=== PATIENT | female | born 1980 | race Caucasian/White ===

== ENCOUNTER 2018-06-03 15:47 | Emergency (ER) | payer SELFPAY ==
[2018-06-03] MEDS ORDERED: HYDROCODONE/APAP 10/325 TAB ONE (16:11)
[2018-06-03] MEDS ORDERED: IBUPROFEN 400 MG TAB ONE (16:11)
[2018-06-03] MEDS ORDERED: IBUPROFEN 200 MG TAB PO ONE (16:11)
--- NOTE | 2018-06-03 17:08 | RAD REPORT ---
EXAM DESCRIPTION: RAD - Foot Right 3 View - 06/03/2018 4:43 pm CLINICAL HISTORY: Foot and ankle pain, twisting injury COMPARISON: None. FINDINGS: No fracture, dislocation or periosteal reaction. No air or foreign body in the soft tissues. IMPRESSION: Negative right foot examination.
--- NOTE | 2018-06-03 17:14 | RAD REPORT ---
EXAM DESCRIPTION: RAD - Ankle Right 3 View - 06/03/2018 4:42 pm CLINICAL HISTORY: Ankle pain, twisting injury COMPARISON: None. FINDINGS: No fracture, dislocation or periosteal reaction. No joint effusion seen. No joint space na rrowing. Lateral soft tissue swelling is present. IMPRESSION: Soft tissue swelling with no right ankle fracture.
--- NOTE | 2018-06-03 17:23 | ER ---
Nurse's Notes [facility] Name: Karma Kay Age: 37 yrs Sex: Female : 1980 Arrival Date: 06/03/2018 Time: 15:50 Bed 11 Private MD: None, None Diagnosis: Pain in right ankle and joints of right foot;Sprain of unspecified ligament of right ankle;Unspecified sprain of right foot Presentation: 06/03 15:54 Presenting complaint: Patient states: Rolled right ankle 2 hours POST HOLE DIGGER. Transition of care: patient was not received from another setting of care. Onset of symptoms was June 03, 2018. Risk Assessment: Do you want to hurt yourself or someone else? Patient reports no desire to harm self or others. Initial Sepsis Screen: Does the patient meet any 2 criteria? No. Patient's initial sepsis screen is negative. Does the patient have a suspected source of infection? No. Patient's initial sepsis screen is negative. Care prior to arrival: None. 15:54 Method Of Arrival: Wheelchair 15:54 Acuity: CARO 4 aj Triage Assessment: 15:55 General: Appears in no apparent distress. uncomfortable, Behavior is calm, cooperative, aj appropriate for age. Pain: Complains of pain in right ankle and anterior aspect of right ankle. Neuro: Level of Consciousness is awake, alert, obeys commands, Oriented to person, place, time, situation, Appropriate for age. Respiratory: Airway is patent Respiratory effort is even, unlabored, Respiratory pattern is regular, symmetrical. Derm: Skin is intact, is healthy with good turgor, Skin is pink, warm \T\ dry. normal. Musculoskeletal: Swelling present in right ankle and anterior aspect of right ankle Reports pain in right ankle and anterior aspect of right ankle. 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 - Social history:: Smoking status: Patient uses tobacco products, smokes one-half pack cigarettes per day. - Ebola Screening: : Patient negative for fever greater than or equal to 101.5 degrees Fahrenheit, and additional compatible Ebola Virus Disease symptoms Patient denies exposure to infectious person Patient denies travel to an Ebola-affected area in the 21 days before illness onset No symptoms or risks identified at this time. Screenin:13 Abuse screen: Denies threats or abuse. Denies injuries from another. Nutritional jl7 screening: No deficits noted. Tuberculosis screening: No symptoms or risk factors identified. Fall Risk Ambulatory Aid- None/Bed Rest/Nurse Assist (0 pts). Gait- Impaired (20 pts.). Total Castro Fall Scale indicates No Risk (0-24 pts). Assessment: 16:13 General: Appears in no apparent distress. uncomfortable, Behavior is calm, cooperative, jl7 appropriate for age. Pain: Complains of pain in right ankle Pain currently is 8 out of 10 on a pain scale. Pain began 2 hours ago. Is continuous. Neuro: Level of Consciousness is awake, alert, obeys commands, Oriented to person, place, time, situation. Cardiovascular: Patient's skin is warm and dry. Respiratory: Airway is patent Respiratory effort is even, unlabored, Respiratory pattern is regular, symmetrical. GI: No signs and/or symptoms were reported involving the gastrointestinal system. : No signs and/or symptoms were reported regarding the genitourinary system. EENT: No signs and/or symptoms were reported regarding the EENT system. Derm: Skin is pink, warm \T\ dry. Musculoskeletal: Range of motion: limited in right ankle Swelling present in right ankle. 17:30 Reassessment: Patient and/or family updated on plan of care and expected duration. Pain jl7 level reassessed. Patient is alert, oriented x 3, equal unlabored respirations, skin warm/dry/pink. Vital Signs: 15:55 BP 148 / 90; Pulse 73; Resp 16; Temp 97.7; Pulse Ox 100% on R/A; Weight 100.7 kg; aj Height 5 ft. 6 in. (167.64 cm); 17:00 BP 145 / 89; Pulse 72; Resp 16 S; Pulse Ox 100% on R/A; jl7 15:55 Body Mass Index 35.83 (100.70 kg, 167.64 cm) ED Course: 15:50 Patient arrived in ED. mr 15:50 None, None is Private Physician. mr 15:51 Fabrizio Bowens NP is PHCP. pm1 15:52 Stanislav Gonzalez MD is Attending Physician. pm1 15:55 Triage completed. aj 15:55 Arm band placed on left wrist. Patient placed in an exam room. aj 16:04 Felecia Storey RN is Primary Nurse. jl7 16:13 Patient has correct armband on for positive identification. Bed in low position. Call jl7 light in reach. Side rails up X 1. Pulse ox on. NIBP on. 16:20 X-ray completed. Portable x-ray completed in exam room. Patient tolerated procedure bb2 well. 16:20 Foot Right 3 View XRAY In Process Unspecified. EDMS 16:21 Ankle Right 3 View XRAY In Process Unspecified. EDMS 17:23 Shiv Patiño MD is Referral Physician. pm1 17:37 No provider procedures requiring assistance completed. Patient did not have IV access jl7 during this emergency room visit. Administered Medications: 16:12 Drug: Ibuprofen 600 mg Route: PO; jl7 17:00 Follow up: Response: No adverse reaction; Pain is decreased jl7 16:13 Drug: [place] 10 mg-325 mg 1 tabs Route: PO; jl7 17:00 Follow up: Response: No adverse reaction; Pain is decreased jl7 Outcome: 17:23 Discharge ordered by MD. pm1 17:37 Discharged to home ambulatory, with crutches. jl7 17:37 Condition: stable 17:37 Discharge instructions given to patient, Instructed on discharge instructions, follow up and referral plans. medication usage, Demonstrated understanding of instructions, follow-up care, medications, Prescriptions given X 1. 17:38 Instructed on crutch walking, Demonstrated understanding of crutch walking. jl7 17:39 Patient left the ED. jl7 Signatures: Dispatcher [employer] EDMS Myla Acosta, China Perez RN, Patrick, METAL MACHINE SETTER METAL MACHINE SETTER pm1 Felecia Storey, Louise Ortiz RN bb2
--- NOTE | 2018-06-03 17:23 | EDPHYS ---
Physician Documentation [facility] Name: Karma Kay Age: 37 yrs Sex: Female : 1980 Arrival Date: 06/03/2018 Time: 15:50 Bed 11 Private MD: None, None ED Physician Stanislav Gonzalez HPI: 06/03 16:04 This 37 yrs old Female presents to ER via Wheelchair with complaints of Right pm1 Ankle Injury. 16:04 The patient presents with pain, that is acute. The complaints affect the right ankle. pm1 Onset: The symptoms/episode began/occurred 2 hour(s) ago. Context: The problem was sustained at home, resulted from a mis-step by the patient, The patient is unable to bear weight. Associated signs and symptoms: Pertinent positives: swelling, Pertinent negatives: numbness, tingling. Modifying factors: The symptoms are alleviated by nothing, the symptoms are aggravated by weight bearing. Severity of symptoms: in the emergency department the symptoms are unchanged. The patient has not experienced similar symptoms in the past. The patient has not recently seen a physician. Patient inverted her right foot while walking. 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 - Social history:: Smoking status: Patient uses tobacco products, smokes one-half pack cigarettes per day. - Ebola Screening: : Patient negative for fever greater than or equal to 101.5 degrees Fahrenheit, and additional compatible Ebola Virus Disease symptoms Patient denies exposure to infectious person Patient denies travel to an Ebola-affected area in the 21 days before illness onset No symptoms or risks identified at this time. ROS: 16:04 Constitutional: Negative for fever, chills, and weight loss, Eyes: Negative for injury, pm1 pain, redness, and discharge, ENT: Negative for injury, pain, and discharge, Neck: Negative for injury, pain, and swelling, Cardiovascular: Negative for chest pain, palpitations, and edema, Respiratory: Negative for shortness of breath, cough, wheezing, and pleuritic chest pain, Abdomen/GI: Negative for abdominal pain, nausea, vomiting, diarrhea, and constipation, Back: Negative for injury and pain. 16:04 Skin: Negative for injury, rash, and discoloration, Neuro: Negative for headache, weakness, numbness, tingling, and seizure. 16:04 MS/extremity: Positive for pain, swelling, of the right ankle and dorsum of right foot. Exam: 16:04 Constitutional: This is a well developed, well nourished patient who is awake, alert, pm1 and in no acute distress. Head/Face: Normocephalic, atraumatic. Chest/axilla: Normal chest wall appearance and motion. Nontender with no deformity. No lesions are appreciated. Cardiovascular: Regular rate and rhythm with a normal S1 and S2. No gallops, murmurs, or rubs. Normal PMI, no JVD. No pulse deficits. Respiratory: Lungs have equal breath sounds bilaterally, clear to auscultation and percussion. No rales, rhonchi or wheezes noted. No increased work of breathing, no retractions or nasal flaring. Back: No spinal tenderness. No costovertebral tenderness. Full range of motion. Skin: Warm, dry with normal turgor. Normal color with no rashes, no lesions, and no evidence of cellulitis. 16:04 Musculoskeletal/extremity: Extremities: grossly normal except: noted in the dorsum of right foot and lateral aspect of right ankle: tenderness, ROM: intact in all extremities, Circulation is intact in all extremities. Sensation intact. Vital Signs: 15:55 BP 148 / 90; Pulse 73; Resp 16; Temp 97.7; Pulse Ox 100% on R/A; Weight 100.7 kg; aj Height 5 ft. 6 in. (167.64 cm); 17:00 BP 145 / 89; Pulse 72; Resp 16 S; Pulse Ox 100% on R/A; jl7 15:55 Body Mass Index 35.83 (100.70 kg, 167.64 cm) aj MDM: 15:52 Patient medically screened. pm1 16:07 Data reviewed: vital signs. Data interpreted: Pulse oximetry: on room air is 100 %. pm1 Interpretation: normal. 17:23 Counseling: I had a detailed discussion with the patient and/or guardian regarding: the pm1 historical points, exam findings, and any diagnostic results supporting the discharge/admit diagnosis, radiology results, the need for outpatient follow up, to return to the emergency department if symptoms worsen or persist or if there are any questions or concerns that arise at home. 06/03 15:58 Order name: Foot Right 3 View XRAY; Complete Time: 17:14 pm1 06/03 15:58 Order name: Ankle Right 3 View XRAY; Complete Time: 17:18 pm1 06/03 15:58 Order name: Ice pack; Complete Time: 16:00 pm1 06/03 17:14 Order name: Crutches; Complete Time: 17:39 pm1 06/03 17:14 Order name: Aircast Ankle Splint; Complete Time: 17:39 pm1 Administered Medications: 16:12 Drug: Ibuprofen 600 mg Route: PO; jl7 17:00 Follow up: Response: No adverse reaction; Pain is decreased jl7 16:13 Drug: [place] 10 mg-325 mg 1 tabs Route: PO; jl7 17:00 Follow up: Response: No adverse reaction; Pain is decreased jl7 Disposition: 18:03 Co-signature as Attending Physician, Stanislav Gonzalez MD. rn Disposition: 06/03/18 17:23 Discharged to Home. Impression: Pain in right ankle and joints of right foot, Sprain of unspecified ligament of right ankle, Unspecified sprain of right foot. - Condition is Stable. - Discharge Instructions: Cast or Splint Care, Adult, Crutch Use, Foot Sprain, Ankle Pain. - Prescriptions for Tylenol- Codeine #3 300-30 mg Oral Tablet - take 2 tablet by ORAL route every 6 hours As needed; 30 tablet. - Work release form, Medication Reconciliation Form, Thank You Letter, Antibiotic Education, Prescription Opioid Use form. - Follow up: Emergency Department; When: As needed; Reason: Worsening of condition. Follow up: Shiv Patiño; When: 2 - 3 days; Reason: Recheck today's complaints, Continuance of care, Re-evaluation by your physician. - Problem is new. - Symptoms have improved. Signatures: Dispatcher [employer] Myla Dominguez RN RN aj Nieto, Roman, MD MD rn Marinas, Patrick, CAR ATTENDANT CAR ATTENDANT pm1 Felecia Storey RN RN jl7 Corrections: (The following items were deleted from the chart) 17:23 17:23 06/03/2018 17:23 Discharged to Home. Impression: Pain in right ankle and joints pm1 of right foot. Condition is Stable. Discharge Instructions: Cast or Splint Care, Adult, Crutch Use, Foot Sprain, Ankle Pain. Prescriptions for Tylenol-Codeine #3 300-30 mg Oral Tablet - take 2 tablet by ORAL route every 6 hours As needed; 30 tablet. and Forms are Medication Reconciliation Form, Thank You Letter, Antibiotic Education, Prescription Opioid Use. Follow up: Emergency Department; When: As needed; Reason: Worsening of condition. Follow up: Shiv Patiño; When: 2 - 3 days; Reason: Recheck today's complaints, Continuance of care, Re-evaluation by your physician. Problem is new. Symptoms have improved. pm1 17:39 17:23 06/03/2018 17:23 Discharged to Home. Impression: Pain in right ankle and joints jl7 of right foot; Sprain of unspecified ligament of right ankle; Unspecified sprain of right foot. Condition is Stable. Discharge Instructions: Cast or Splint Care, Adult, Crutch Use, Foot Sprain, Ankle Pain. Prescriptions for Tylenol-Codeine #3 300-30 mg Oral Tablet - take 2 tablet by ORAL route every 6 hours As needed; 30 tablet. and Forms are Medication Reconciliation Form, Thank You Letter, Antibiotic Education, Prescription Opioid Use. Follow up: Emergency Department; When: As needed; Reason: Worsening of condition. Follow up: Shiv Patiño; When: 2 - 3 days; Reason: Recheck today's complaints, Continuance of care, Re-evaluation by your physician. Problem is new. Symptoms have improved. pm1
== END 2018-06-03 17:39 | disposition home or self-care (01) ==
LOC: ER 15:47
DX: S93.401A Sprain of unspecified ligament of right ankle, initial encounter (principal); S93.601A Unspecified sprain of right foot, initial encounter; X58.XXXA Exposure to other specified factors, initial encounter; Y93.01 Activity, walking, marching and hiking; Y92.009 Unspecified place in unspecified non-institutional (private) residence as the place of occurrence of the external cause; Z88.5 Allergy status to narcotic agent; F17.210 Nicotine dependence, cigarettes, uncomplicated
CPT/HCPCS: 99284

== ENCOUNTER 2019-05-19 17:26 | Emergency (ER) | payer SELFPAY ==
[2019-05-19] MEDS ORDERED: IPRATROPIUM BROM 0.5MG/2.5ML ONE (18:30)
[2019-05-19] MEDS ORDERED: LEVALBUTEROL 1.25 MG/3 ML NEB ONE (18:31)
--- NOTE | 2019-05-19 18:35 | RAD REPORT ---
EXAM DESCRIPTION: Yumiko Almeida (2 Views)05/19/2019 6:27 pm CLINICAL HISTORY: Cough COMPARISON: None FINDINGS: The lungs appear clear of acute infiltrate. The heart is normal size IMPRESSION: No acute abnormalities displayed
--- NOTE | 2019-05-19 19:49 | EDPHYS ---
Physician Documentation [facility] Name: Karma Kay Age: 38 yrs Sex: Female : 1980 Arrival Date: 05/19/2019 Time: 17:27 Bed 20 Private MD: ED Physician John Castillo HPI: 05/19 19:49 This 38 yrs old Female presents to ER via Ambulatory with complaints of Cough.kb 19:49 The patient or guardian reports cough, that is intermittent, described as moderate, kb with no sputum. Onset: The symptoms/episode began/occurred 6 week(s) ago. Severity of symptoms: At their worst the symptoms were moderate, in the emergency department the symptoms are unchanged. Modifying factors: The symptoms are alleviated by nothing, the symptoms are aggravated by nothing. Associated signs and symptoms: The patient has no apparent associated signs or symptoms. The patient has not experienced similar symptoms in the past. The patient has not recently seen a physician. Historical: - Allergies: 17:31 Demerol; aj - Immunization history:: Adult Immunizations up to date. - Social history:: Smoking status: Patient/guardian denies using tobacco. - Ebola Screening: : Patient negative for fever greater than or equal to 101.5 degrees Fahrenheit, and additional compatible Ebola Virus Disease symptoms Patient denies exposure to infectious person Patient denies travel to an Ebola-affected area in the 21 days before illness onset No symptoms or risks identified at this time. ROS: 19:49 Constitutional: Negative for fever, chills, and weight loss, ENT: Negative for injury, kb pain, and discharge, Neck: Negative for injury, pain, and swelling, Cardiovascular: Negative for chest pain, palpitations, and edema, Abdomen/GI: Negative for abdominal pain, nausea, vomiting, diarrhea, and constipation, Back: Negative for injury and pain, : Negative for injury, bleeding, discharge, and swelling, MS/Extremity: Negative for injury and deformity, Skin: Negative for injury, rash, and discoloration, Neuro: Negative for headache, weakness, numbness, tingling, and seizure. 19:49 Respiratory: Positive for cough, with no reported sputum, Negative for dyspnea on exertion, hemoptysis, orthopnea, pleurisy, shortness of breath, sputum production, wheezing. Exam: 19:49 Constitutional: This is a well developed, well nourished patient who is awake, alert, kb and in no acute distress. Head/Face: Normocephalic, atraumatic. ENT: Nares patent. No nasal discharge, no septal abnormalities noted. Tympanic membranes are normal and external auditory canals are clear. Oropharynx with no redness, swelling, or masses, exudates, or evidence of obstruction, uvula midline. Mucous membranes moist. Neck: Trachea midline, no thyromegaly or masses palpated, and no cervical lymphadenopathy. Supple, full range of motion without nuchal rigidity, or vertebral point tenderness. No Meningismus. Chest/axilla: Normal chest wall appearance and motion. Nontender with no deformity. No lesions are appreciated. Cardiovascular: Regular rate and rhythm with a normal S1 and S2. No gallops, murmurs, or rubs. Normal PMI, no JVD. No pulse deficits. Respiratory: Lungs have equal breath sounds bilaterally, clear to auscultation and percussion. No rales, rhonchi or wheezes noted. No increased work of breathing, no retractions or nasal flaring. Abdomen/GI: Soft, non-tender, with normal bowel sounds. No distension or tympany. No guarding or rebound. No evidence of tenderness throughout. Skin: Warm, dry with normal turgor. Normal color with no rashes, no lesions, and no evidence of cellulitis. MS/ Extremity: Pulses equal, no cyanosis. Neurovascular intact. Full, normal range of motion. Neuro: Awake and alert, GCS 15, oriented to person, place, time, and situation. Cranial nerves II-XII grossly intact. Motor strength 5/5 in all extremities. Sensory grossly intact. Cerebellar exam normal. Normal gait. Vital Signs: 17:31 BP 137 / 80; Pulse 107; Resp 21; Temp 98.6; Pulse Ox 95% on R/A; Weight 122.47 kg; aj Height 5 ft. 6 in. (167.64 cm); 18:30 BP 132 / 78; Pulse 92; Resp 19; Pulse Ox 96% on R/A; hb 19:20 BP 128 / 97; Pulse 87; Resp 20 S; Temp 98.8(O); Pulse Ox 96% on R/A; cc3 17:31 Body Mass Index 43.58 (122.47 kg, 167.64 cm) caryl MDM: 17:58 Patient medically screened. kb 19:48 Data reviewed: vital signs, nurses notes. Data interpreted: Pulse oximetry: on room air kb is 96 %. Interpretation: normal. Counseling: I had a detailed discussion with the patient and/or guardian regarding: the historical points, exam findings, and any diagnostic results supporting the discharge/admit diagnosis, radiology results, the need for outpatient follow up, a family practitioner, to return to the emergency department if symptoms worsen or persist or if there are any questions or concerns that arise at home. 05/19 17:36 Order name: Chest Pa And Lat (2 Views) XRAY; Complete Time: 18:36 kb Administered Medications: 18:35 Drug: Xopenex (3) 1.25 mg Route: Inhalation; hb 20:00 Follow up: Response: No adverse reaction; Marked relief of symptoms cc3 18:35 Drug: AtroVENT Aerosol 0.5 mg Route: Inhalation; hb 20:08 Follow up: Response: No adverse reaction; Marked relief of symptoms cc3 19:55 Drug: predniSONE 40 mg Route: PO; cc3 20:00 Follow up: Response: No adverse reaction cc3 Disposition: 05/20 09:11 Co-signature as Attending Physician, John Castillo MD I agree with the assessment and daniel plan of care. Disposition: 05/19/19 19:48 Discharged to Home. Impression: Cough. - Condition is Stable. - Discharge Instructions: Cough, Adult, [id number]. - Prescriptions for Prednisone 20 mg Oral Tablet - take 1 tablet by ORAL route once daily for 5 days; 5 tablet. Tessalon Perles 100 mg Oral Capsule - take 1 capsule by ORAL route every 8 hours As needed; 15 capsule. Albuterol Sulfate 90 mcg/actuation - inhale 1-2 puff by INHALATION route every 4-6 hours; 1 Inhaler. - Medication Reconciliation Form, Thank You Letter, Antibiotic Education, Prescription Opioid Use form. - Follow up: Emergency Department; When: As needed; Reason: Worsening of condition. Follow up: Private Physician; When: 2 - 3 days; Reason: Recheck today's complaints, Continuance of care, Re-evaluation by your physician. Signatures: Dispatcher [employer] Melody Millan, STEPHENIE-C STEPHENIE-Ckb Acosta, Myla, RN John Salazar MD MD cha Baxter, Heather, RN RN hb Cordel, Charlene cc3 Corrections: (The following items were deleted from the chart) 05/19 20:01 19:48 05/19/2019 19:48 Discharged to Home. Impression: Cough. Condition is Stable. cc3 Forms are Medication Reconciliation Form, Thank You Letter, Antibiotic Education, Prescription Opioid Use. Follow up: Emergency Department; When: As needed; Reason: Worsening of condition. Follow up: Private Physician; When: 2 - 3 days; Reason: Recheck today's complaints, Continuance of care, Re-evaluation by your physician. kb
--- NOTE | 2019-05-19 19:49 | ER ---
Nurse's Notes [facility] Name: Karma Kay Age: 38 yrs Sex: Female : 1980 Arrival Date: 05/19/2019 Time: 17:27 Bed 20 Private MD: Diagnosis: Cough Presentation: 05/19 17:31 Presenting complaint: Patient states: Cough for 6 weeks. Transition of care: patient aj was not received from another setting of care. Onset of symptoms was April 2019. Risk Assessment: Do you want to hurt yourself or someone else? Patient reports no desire to harm self or others. Initial Sepsis Screen: Does the patient meet any 2 criteria? No. Patient's initial sepsis screen is negative. Does the patient have a suspected source of infection? No. Patient's initial sepsis screen is negative. Care prior to arrival: None. 17:31 Method Of Arrival: Ambulatory aj 17:31 Acuity: CARO 3 aj Triage Assessment: 17:31 General: Appears in no apparent distress. comfortable, Behavior is calm, cooperative, aj appropriate for age. Pain: Denies pain. Neuro: Level of Consciousness is awake, alert, obeys commands, Oriented to person, place, time, situation, Appropriate for age. Respiratory: Reports cough that is persistent Airway is patent Respiratory effort is even, unlabored, Respiratory pattern is regular, symmetrical. Derm: Skin is intact, is healthy with good turgor, Skin is pink, warm \T\ dry. normal. Historical: - Allergies: 17:31 Demerol; aj - Immunization history:: Adult Immunizations up to date. - Social history:: Smoking status: Patient/guardian denies using tobacco. - Ebola Screening: : Patient negative for fever greater than or equal to 101.5 degrees Fahrenheit, and additional compatible Ebola Virus Disease symptoms Patient denies exposure to infectious person Patient denies travel to an Ebola-affected area in the 21 days before illness onset No symptoms or risks identified at this time. Screenin:45 Abuse screen: Denies threats or abuse. Denies injuries from another. Nutritional hb screening: No deficits noted. Tuberculosis screening: No symptoms or risk factors identified. Fall Risk None identified. Assessment: 17:45 General: Appears in no apparent distress. Behavior is calm, cooperative. Pain: Denies hb pain. Neuro: Level of Consciousness is awake, alert, obeys commands, Oriented to person, place, time, situation. Cardiovascular: Heart tones S1 S2 present Capillary refill < 3 seconds Patient's skin is warm and dry. Respiratory: Airway is patent Respiratory effort is mildly labored Respiratory pattern is tachypnea Breath sounds are diminished bilaterally. Breath sounds with wheezes. GI: No signs and/or symptoms were reported involving the gastrointestinal system. : No signs and/or symptoms were reported regarding the genitourinary system. EENT: No signs and/or symptoms were reported regarding the EENT system. Derm: Skin is pink, warm \T\ dry. Musculoskeletal: No signs and/or symptoms reported regarding the musculoskeletal system. 18:40 Reassessment: Patient appears in no apparent distress at this time. Patient and/or hb family updated on plan of care and expected duration. Pain level reassessed. Patient is alert, oriented x 3, equal unlabored respirations, skin warm/dry/pink. 19:30 Reassessment: Patient appears in no apparent distress at this time. Patient and/or cc3 family updated on plan of care and expected duration. Pain level reassessed. Patient is alert, oriented x 3, equal unlabored respirations, skin warm/dry/pink. Received this female patient from morning shift RN Kae as a case of cough. No IV cannula in situ. Patient denies pain at this time. Patient states feeling better. Patient states symptoms have improved. General: Appears in no apparent distress. comfortable, Behavior is calm, cooperative, appropriate for age. Pain: Denies pain. Neuro: Level of Consciousness is awake, alert, obeys commands, Oriented to person, place, time, situation, Appropriate for age. Cardiovascular: Denies chest pain, Heart tones S1 S2 present Capillary refill < 3 seconds Patient's skin is warm and dry. Respiratory: Airway is patent Respiratory effort is even, unlabored, Respiratory pattern is regular, symmetrical. GI: Abdomen is round obese. : No signs and/or symptoms were reported regarding the genitourinary system. EENT: No signs and/or symptoms were reported regarding the EENT system. Derm: Skin is intact, is healthy with good turgor, Skin is pink, warm \T\ dry. normal. Musculoskeletal: Circulation, motion, and sensation intact. Range of motion: intact in all extremities. 20:00 Reassessment: Patient appears in no apparent distress at this time. Patient and/or cc3 family updated on plan of care and expected duration. Pain level reassessed. Patient is alert, oriented x 3, equal unlabored respirations, skin warm/dry/pink. 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 No IV cannula in situ. Patient left ER vitally stable and ambulatory with her friend. No valuables left in the patient's room. Patient denies pain at this time. Patient states feeling better. Patient states symptoms have improved. Vital Signs: 17:31 BP 137 / 80; Pulse 107; Resp 21; Temp 98.6; Pulse Ox 95% on R/A; Weight 122.47 kg; aj Height 5 ft. 6 in. (167.64 cm); 18:30 BP 132 / 78; Pulse 92; Resp 19; Pulse Ox 96% on R/A; hb 19:20 BP 128 / 97; Pulse 87; Resp 20 S; Temp 98.8(O); Pulse Ox 96% on R/A; cc3 17:31 Body Mass Index 43.58 (122.47 kg, 167.64 cm) aj ED Course: 17:27 Patient arrived in ED. as 17:29 Melody Graves FNP-C is PHCP. kb 17:29 John Castillo MD is Attending Physician. kb 17:31 Triage completed. aj 17:31 Arm band placed on right wrist. Patient placed in an exam room. aj 17:45 Patient has correct armband on for positive identification. Call light in reach. Side hb rails up X 1. 18:24 Chest Pa And Lat (2 Views) XRAY In Process Unspecified. EDMS 18:28 Kae Rogers, RN is Primary Nurse. hb 20:00 No provider procedures requiring assistance completed. Patient did not have IV access cc3 during this emergency room visit. Administered Medications: 18:35 Drug: Xopenex (3) 1.25 mg Route: Inhalation; hb 20:00 Follow up: Response: No adverse reaction; Marked relief of symptoms cc3 18:35 Drug: AtroVENT Aerosol 0.5 mg Route: Inhalation; hb 20:08 Follow up: Response: No adverse reaction; Marked relief of symptoms cc3 19:55 Drug: predniSONE 40 mg Route: PO; cc3 20:00 Follow up: Response: No adverse reaction cc3 Outcome: 19:48 Discharge ordered by . kristy 20:00 Discharged to home ambulatory, with friend. cc3 20:00 Condition: stable 20:00 Discharge instructions given to patient, Instructed on discharge instructions, follow up and referral plans. medication usage, Demonstrated understanding of instructions, follow-up care, medications, Prescriptions given X 3. 20:01 Patient left the ED. cc3 Signatures: Dispatcher [employer] EDNY Melody Graves, HOTEL FRONT DESK AGENT-C HOTEL FRONT DESK AGENT-Myla Valerio, RN Regina Gomez Heather, RN RN Nataly Harvey cc3
[2019-05-19] MEDS ORDERED: predniSONE 20 MG TAB ONE (19:55)
== END 2019-05-19 20:01 | disposition home or self-care (01) ==
LOC: ER 17:26
DX: R05 Cough (principal); Z88.5 Allergy status to narcotic agent
CPT/HCPCS: 71046; 99284; J7512